=== PATIENT | male | born 1965 | race Caucasian/White ===

== ENCOUNTER 2022-01-07 21:54 | Emergency (ER) | payer MEDICAID, SELFPAY ==
[2022-01-07 22:00] VITALS: BP 146/89; PULSE 83; RESP 18; TEMP 36.6; O2SAT 96; BMI 24.0
--- NOTE | 2022-01-07 22:34 | ED.BACK ---
HPI - Back Pain/Injury General Chief Complaint: Back Injury/Pain Stated Complaint: Back Pain Time Seen by Provider: 01/07/22 22:10 History of Present Illness HPI Narrative: This 56-year-old male comes in reporting low back pain for the past couple months. He states that he has actually had back pain over his many is 30 years but this feels different. He states that he was bit by a tick a couple months ago and then began to have some swelling in his inguinal region. This was thought to be a hernia initially by some provider that he saw elsewhere. He had a CT scan of his abdomen and pelvis about a month ago and results from this imaging indicated no hernia but some inguinal lymphadenopathy. He did have a Lyme test which was negative at that time. He states that he has low back pain which is radiating some down his legs. He does have an appointment tomorrow with a provider and another appointment the next day. He has not been seen at our facility before. He states that he has been taking Tylenol and ibuprofen without much relief. He does not report any recent injury event. He has not had any fevers. He does report some constipation but this is not new for him. He did have a colonoscopy a couple months ago and states that since then he feels like he has had worse pain in his low back and low abdomen. Related Data Home Medications Medication Instructions Recorded Confirmed Tylenol 01/07/22 Allergies Allergy/AdvReac Type Severity Reaction Status Date / Time No Known Drug Allergies Allergy Verified 01/07/22 22:02 Review of Systems Status of ROS: Reports: 10 or more systems reviewed and unremarkable except as noted in History and below Narrative: Constitutional: No fevers, no weight gain or loss. Eyes: No discharge. No vision changes. HENT: No congestion, no sore throat, no ear pain. Cardiovascular: No chest pain, no palpitations. Respiratory: No shortness of breath, no wheezes, no cough. Gastrointestinal: No abdominal pain, no vomiting, no diarrhea. Genitourinary: No dysuria, no hematuria. Musculoskeletal: Low back pain as described above. Skin: No rashes, no pruritis. Neurological: No dizziness, weakness, sensory change, speech change. Endo/Heme/Allergies: No bruising or bleeding. No polydipsia. Pysch: no suicidality, no insomnia. All other systems reviewed and are negative. PFSH PFSH Social History Smoking Status: Current every day smoker How often do you have a drink containing alcohol: monthly or less AUDIT-C Alcohol total score: 1 Non-prescribed substance use: denies use Exam Narrative: Exam Narrative: Constitutional: Well-developed, well-nourished, no acute distress. HEENT: Normocephalic, atraumatic. Neck: Normal range of motion. Nontender. Supple. Heart: Regular. No murmurs. Normal rate. Intact distal pulses. Lungs: Clear to auscultation. No chest discomfort. No wheezes, rhonchi, or rales. Abdomen: Normal bowel sounds. Nontender. No rebound tenderness. Genitalia: Deferred. Back: No midline tenderness. Normal range of motion but he has slow movements when moving from sitting to standing in vice versa due to pain in his low back. No saddle anesthesia or urinary incontinence per Extremities: Normal range of motion. No injury. Skin: Intact. No rash. Warm. No erythema or pallor. Neurologic: No altered sensation. No weakness. Alert and oriented. Psychiatric: No suicidality. No anxiety or depression. No insomnia. Nursing notes and vitals signs are reviewed. Const: Vital Signs, click to edit/add: Vital Signs - 24 hr 01/07/22 22:00 Temperature 97.8 F Pulse Rate [Left P ulse Oximeter] 83 Respiratory Rate 18 Blood Pressure [Ri ght Upper Arm] 146/89 H Pulse Oximetry 96 Oxygen Delivery Me thod Room Air Course Vital Signs Vital signs: Initial Vital Signs Temperature 97.8 F 01/07/22 22:00 Temperature Source Temporal Artery Scan 01/07/22 22:00 Pulse Rate 83 01/07/22 22:00 Respiratory Rate 18 01/07/22 22:00 Blood Pressure 146/89 H 01/07/22 22:00 Blood Pressure Mean 108 01/07/22 22:00 Blood Pressure Position Semi-Fowlers 01/07/22 22:00 Pulse Oximetry 96 01/07/22 22:00 Oxygen Delivery Method 01/07/22 22:00 Vital Signs Temperature 97.8 F 01/07/22 22:00 Pulse Rate 83 01/07/22 22:00 Respiratory Rate 18 01/07/22 22:00 Blood Pressure 146/89 H 01/07/22 22:00 Pulse Oximetry 96 01/07/22 22:00 Oxygen Delivery Method 01/07/22 22:00 Temperature 97.8 F 01/07/22 22:00 Pulse Rate 83 01/07/22 22:00 Respiratory Rate 18 01/07/22 22:00 Blood Pressure 146/89 H 01/07/22 22:00 Pulse Oximetry 96 01/07/22 22:00 Oxygen Delivery Method 01/07/22 22:00 MDM - Back Pain/Injury MDM Narrative Medical decision making narrative: This patient comes in reporting low back pain as described above. He has been seen by a clinicians and emergency department physician elsewhere and has follow-up appointments in the next couple days. He arrives with normal vital signs but has distinct discomfort in his low back whose etiology appears more likely to be musculoskeletal or nerve impingement. The patient has had CT imaging and lab test done rather recently. These returned with essentially normal results. He does have follow-up appointments each of the next 2 days. Today here I discussed lab and imaging options but indicated this would likely be redundant and without a recent injury event and with normal vital signs and symptoms that are rather chronic these lab and imaging tests were declined in a process of shared decision making. He did receive an oral dose of dexamethasone 10 mg and an intramuscular injection of Toradol 30 mg. I did also provided [facility] prescription for some tablets of [place]. He understands that this medicine will not be refilled out of the emergency department. Discharge Plan Discharge Clinical Impression: Lumbar radiculopathy Patient Disposition: Home, Self-Care Condition: Unchanged Additional Instructions: Use medicines as prescribed and needed. Follow up with MD appointments as scheduled. Return if worsening. Prescriptions: No Action Tylenol Stand Alone Forms: [employer] Info Instructions
[2022-01-07] MEDS: KETOROLAC 30 MG/ML inj IM (22:40)
[2022-01-07] MEDS: dexAMETHasone 10 MG/ML inj PO (22:40)
== END 2022-01-07 23:25 | disposition home or self-care (01) ==
LOC: ED 23:10
PROVIDERS: Emergency Provider Emergency Medicine Emergency Medical Services
DX: M54.16 Radiculopathy, lumbar region (principal)
CPT/HCPCS: 96372; 99284; J1100; J1885